=== PATIENT | male | born 1965 | race Caucasian/White ===

== ENCOUNTER 2020-03-26 19:19 | Emergency (ER) | payer MEDICAID, SELFPAY ==
[~2020-03-26] VITALS: Ht 167.6 cm; Wt 63.3 kg
--- NOTE | 2020-03-26 20:16 | NUR ---
PT CAMEINTO ED DUE TO CLEANING SOME MOLD AT HOME AND BREATHING IN BLEACH AND DENATURED ALCOHOL. AFTER THAT PT DEVELOPED 8/10 CHEST PAIN ON THE LEFT SIDE, NON RADIATING. PT LUNGS HAVE WHEEZING AND CRACKLES NOTED BY THIS RN. PT DENIES PAST MEDICAL HX OR DIAGNOSIS TO THIS RN. 1 PACK/DAY SMOKER. NAD. PT FEELS THAT HE IS HAVING SOB AND OCCASSIONALLY COUGHING UP CLEAR SPUTUM. PT PLACED ON SPO2/BP/ECG MONITORING, VSS. WCTM. WAITING FOR ERP EVAL.
[2020-03-26] MEDS ORDERED: ALBUTEROL/IPRATROPIUM 2.5MG/0.5MG, 3 ML NPPB SCH (20:30)
--- NOTE | 2020-03-26 20:41 | NUR ---
PT MEDICATED PER SEP, RT CALLED FOR RESP TREATMENT. PT LAYING ON GURNEY WATCHING TV ON PHONE, NAD, VSS, WCTM. WAITING FOR BREATHING TREATMENT THEN RECHECK.
[2020-03-26] MEDS ORDERED: ALBUTEROL/IPRATROPIUM 2.5MG/0.5MG, 3 ML ONE (20:45)
--- NOTE | 2020-03-26 21:16 | NUR ---
PT REPORTS BREATHING IS EASIER AFTER MEDICATION. NO LONGER FEELING SOB. LUNGS SOUNDS ARE CLEAR AND DIMINISHED TO THIS RN. PT NAD, WATCHING TV ON PHONE, WCTM.
--- NOTE | 2020-03-26 22:14 | NUR ---
PT RESTING ON GURNEY APPEARS COMFORTABLE, NO CHANGE IN CONDITION. NAD, SIGNIFICANT OTEHR AT BS, VSS, PT UP FOR RECHECK. WCTM.
[2020-03-26 22:24] VITALS: BP 121/69
--- NOTE | 2020-03-26 22:24 | NUR ---
Patient given discharge instructions and they have confirmed that they understand the instructions. Patient ambulatory with steady gait. DENIES ADDITIONAL NEEDS OR QUESTIONS AT THIS TIME, NAD, NO BELONGINGS LEFT IN ROOM AFTER DC.
== END 2020-03-26 22:27 | disposition home or self-care (01) ==
LOC: ED 22:21
DX: T59.811A Toxic effect of smoke, accidental (unintentional), initial encounter (principal); R06.00 Dyspnea, unspecified; R07.89 Other chest pain; R06.02 Shortness of breath; I45.10 Unspecified right bundle-branch block; I44.4 Left anterior fascicular block; F17.210 Nicotine dependence, cigarettes, uncomplicated; Y92.89 Other specified places as the place of occurrence of the external cause
CPT/HCPCS: 71046; 93005; 94640; 99285; J7512